=== PATIENT | female | born 1955 | race Caucasian/White ===

== ENCOUNTER 2018-01-24 11:19 | Inpatient (IN) | payer BC ==
[~2018-01-24] VITALS: Ht 172.7 cm; Wt 100.1 kg
[2018-01-24] VITALS (13 sets, daily range): BP systolic 124–176; BP diastolic 53–80
[~2018-01-24 11:19] MED LIST: BENICAR HCT 201 EACH PO; FUROSEMIDE20 MG PO; NEXIUM40 MG PO; PREMARIN1.25 MG PO; TRAMADOL HCL50 MG PO; VALSARTAN-HCTZ1 EAC2 PO; XANAX XR2 MG PO
[2018-01-24 12:10] LABS: BASOPHIL (%) 0.7 % (0-1); BASOPHIL COUNT 0.1 K/uL (0-0.1); EOSINOPHIL (%) 2.1 % (0-5); EOSINOPHIL COUNT 0.2 K/uL (0-0.3); HEMOGLOBIN 13.6 G/DL (11.9-15.5); IMMATURE GRANULOCYTE (%) 0.3 % (0.0-0.7); LYMPHOCYTE (%) 33.2 % (15-42); LYMPHOCYTE COUNT 3.1 K/uL (1.0-2.8); MCH 30.8 PG (29.0-34.0); MCHC 33.2 G/DL (30.0-36.0); MONOCYTE (%) 10.3 % (3-12); NEUTROPHIL (%) 53.4 % (45-76); PLATELET COUNT 240 K/uL (156-360); RBC DIS.WIDTH-CV 13.2 % (11.8-14.6); RBC DIS.WIDTH-SD 45.1 % (39-53); RED BLOOD COUNT 4.41 M/uL (3.80-5.20); WHITE BLOOD COUNT 9.4 K/uL (4.1-10.2)
[2018-01-24 12:18] LABS: PTT 29.2 SEC (25-37)
[2018-01-24 12:20] LABS: AMYLASE 66 IU/L (1-118); CHLORIDE 100 mEq/L (99-109); POTASSIUM 3.5 mEq/L (3.7-5.4); SODIUM 141 mEq/L (136-147)
[2018-01-24 12:22] LABS: GLUCOSE 101 mg/dL (70-99)
[2018-01-24 12:25] LABS: CREATININE 0.8 mg/dL (0.6-1.3); GFR ESTIMATE (CALCULATED) > 59 mL/min/; SERUM ETHYL ALCOHOL < 10 mg/dL
[2018-01-24 12:26] LABS: UREA NITROGEN (BUN) 13 mg/dL (9-23)
[2018-01-24 12:28] LABS: LIPASE 25 U/L (1.0-51.0)
[2018-01-24 12:32] LABS: TROP-I INTERPRETATION NEGATIVE; TROPONIN-I 0.02 ng/mL (0.0-0.30)
[2018-01-24 14:16] LABS: APPEARANCE CLEAR ((CLEAR)); BILIRUBIN NEGATIVE; BLOOD NEGATIVE; COLOR STRAW ((YELLOW)); GLUCOSE (STRIP) NEGATIVE; KETONES NEGATIVE; LEUKOCYTES NEGATIVE; NITRITE NEGATIVE; PROTEIN (STRIP) NEGATIVE; SPECIFIC GRAVITY 1.008 (1.000-1.030); UCUL ADDED? NO; UROBILINOGEN 0.2 MG/DL (0.2-1.0)
[2018-01-24 14:27] LABS: AMPHETAMINE PRESUMPTIVE POSITIVE (500 ng/mL); BENZODIAZEPINES PRESUMPTIVE POSITIVE (150 ng/mL); COCAINE NEGATIVE (150 ng/mL); METHADONE NEGATIVE (200 ng/mL); METHAMPHETAMINE NEGATIVE (500 ng/mL); OPIATES (MORPHINE) NEGATIVE (100 ng/mL); PHENCYCLIDINE NEGATIVE (25 ng/mL); THC CANNABINOIDS NEGATIVE (50 ng/mL); TRICYCLIC ANTIDEPRESSANTS NEGATIVE (300 ng/mL)
[2018-01-24 14:28] LABS: BARBITURATES NEGATIVE (200 ng/mL); BUPRENORPHINE NEGATIVE (10 ng/mL); OXYCODONE NEGATIVE (100 ng/mL); PROPOXYPHENE NEGATIVE (300 ng/mL)
[2018-01-24] MEDS ORDERED: PANTOPRAZOLE SO40 MG PO (14:54)
[2018-01-24] MEDS ORDERED: ZIAC 5/6.251 TABLET PO (14:55)
[2018-01-24 15:08] LABS: BENZODIAZEPINES, URINE SCREEN POSITIVE (200 ng/mL)
[2018-01-25] VITALS (15 sets, daily range): BP systolic 120–174; BP diastolic 59–85
[2018-01-25 10:57] LABS: BASOPHIL (%) 0.8 % (0-1); BASOPHIL COUNT 0.1 K/uL (0-0.1); EOSINOPHIL (%) 2.5 % (0-5); EOSINOPHIL COUNT 0.2 K/uL (0-0.3); HEMATOCRIT 39.1 % (36.0-46.0); HEMOGLOBIN 12.8 G/DL (11.9-15.5); IMMATURE GRANULOCYTE (%) 0.8 % (0.0-0.7); LYMPHOCYTE (%) 31.3 % (15-42); LYMPHOCYTE COUNT 2.4 K/uL (1.0-2.8); MCH 30.5 PG (29.0-34.0); MCHC 32.7 G/DL (30.0-36.0); MCV 93.3 FL (83-99); MONOCYTE (%) 9.1 % (3-12); MONOCYTE COUNT 0.7 K/uL (0-0.8); NEUTROPHIL (%) 55.5 % (45-76); NEUTROPHIL COUNT 4.3 K/uL (1.8-6.4); PLATELET COUNT 224 K/uL (156-360); RBC DIS.WIDTH-CV 13.4 % (11.8-14.6); RBC DIS.WIDTH-SD 45.4 % (39-53); RED BLOOD COUNT 4.19 M/uL (3.80-5.20); WHITE BLOOD COUNT 7.7 K/uL (4.1-10.2)
[2018-01-25 11:08] LABS: INTER. NORMALIZED RATIO 1.1
[2018-01-25 11:10] LABS: PTT 27.1 SEC (25-37)
[2018-01-25 11:40] LABS: CHLORIDE 107 MEQ/L (99-109); CREATININE 0.7 MG/DL (0.6-1.3); GFR ESTIMATE (CALCULATED) > 59 mL/min/; MAGNESIUM 1.9 mg/dl (1.3-2.7); POTASSIUM 3.9 MEQ/L (3.7-5.4); SODIUM 143 MEQ/L (136-147); UREA NITROGEN (BUN) 11 mg/dL (9-23)
[2018-01-25 11:44] LABS: GLUCOSE 159 mg/dL (70-99)
[2018-01-25 16:40] LABS: HDL CHOLESTEROL 42 MG/DL (Desirable>=50); LDL CHOLESTEROL 115 mg/dL (Desirable<100); NON-HDL CHOLESTEROL 144 mg/dL (Desirable<160); TOTAL CHOLESTEROL 186 mg/dL (Desirable<200); TRIGLYCERIDES 143 MG/DL (Normal: <150)
[2018-01-28 07:06] LABS: HEMOGLOBIN A1c (GLYCOHEMOGLOB) 6.5 % (Below 5.7)
== END 2018-01-25 17:15 | disposition home or self-care (01) | DRG 63 ==
LOC: EME 11:19 → 4WEST 14:39 → EDOF 14:39 → ENRESERV 14:44 → 4WEST 15:11 → ENRESERV 01-25 15:36 → CANRESERV 01-25 15:36 → 4WEST 01-25 17:15
PROVIDERS: Emergency Medicine Emergency Medical Services; Specialist
DX: I63.9 Cerebral infarction, unspecified (principal); R29.810 Facial weakness; R47.81 Slurred speech; I10 Essential (primary) hypertension; F41.9 Anxiety disorder, unspecified; R60.0 Localized edema
CPT/HCPCS: 70450; 70496; 70498; 70551; 80047; 80048; 80061; 81003; 82150; 83036; 83690; 83735; 84484; 84999; 85025; 85610; 85730; 86850; 86900; 86901; 87641; 93005; 93306; 99281; 99285; G0480; J1644; J2765; J2997; J7040; J7120